=== PATIENT | male | born 2000 | race Caucasian/White ===

== ENCOUNTER → 2025-02-25 | Outpatient (CLI) | payer BC, SELFPAY ==
--- NOTE | 2025-02-24 10:50 | TONS_PTH ---
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 Osmar Garland MD : 2000 BED: DIS: 02/25/2025 SPEC #: [id number] RECD: 02/25/25 14:56 STATUS: CRISTÓBAL REQ #: [id number] KAYLEY: 02/24/25 10:[address]: Osmar Garland DEPT: SURGICAL PATHOLOGY RECD BY: John Abreu ENTERED: 02/26/25 10:30 SP TYPE: TONSILS OTHR DR: Dr. Saira Mason MD Tissues: A - Tonsil, NOS Procedures: Surgery Specimen Level III HEADER OPERATION: Tonsillectomy PRE-OP DIAGNOSIS: Hypertrophy of tonsils, obstructive sleep apnea TISSUE SUBMITTED: A- Bilateral tonsils *pin on right* MICROSCOPIC DIAGNOSIS A. Tonsils, tonsillectomy: - Reactive lymphoid hyperplasia, left (A1, A2). - Reactive lymphoid hyperplasia, right (A3). MICROSCOPIC DESCRIPTION Slides are reviewed. GROSS DESCRIPTION A. Received in formalin labeled with the patient's name and date of . Designated as tonsils are two jaimes tonsils, each surfaced by jaimes-groves somewhat granular mucosa. There is a pin designating the right tonsil which is inked black. They measure 4.1 x 3.0 x 2.4 cm (left) and 4.5 x 2.9 x 2.1 cm (right). Sectioning reveals jaimes, focally erythematous cryptic cut surfaces containing grumous material. Well Driller sections are submitted as follows: A1-A2: Left tonsilA3: Right tonsil OK 02/26/2025 CPT:[id number]
== END | disposition home or self-care (01) ==
LOC: LABSPEC 15:51
PROVIDERS: PCP Pediatrics; Referring Provider Otolaryngology; Visit Provider Otolaryngology
DX: J35.1 Hypertrophy of tonsils (principal); G47.33 Obstructive sleep apnea (adult) (pediatric)
CPT/HCPCS: 88304